=== PATIENT | female | born 1970 | race Caucasian/White ===

== ENCOUNTER 2017-06-10 16:21 | Emergency (ER) | payer BC, MEDICAID ==
[~2017-06-10] VITALS: Ht 157.5 cm; Wt 63.5 kg
[2017-06-10 16:45] VITALS: BP_SYST 111
[2017-06-10 17:30] LABS: BILIRUBIN,URINE NEGATIVE (NEGATIVE); CLARITY/URINE CLEAR (CLEAR); COLOR,URINE YELLOW (YELLOW); GLUCOSE,URINE NEGATIVE (NEGATIVE); KETONES,URINE NEGATIVE (NEGATIVE); LEUKOCYTE ESTERASE ,URINE 1+ (NEGATIVE); NITRITE, URINE NEGATIVE (NEGATIVE); PH,URINE 6.5 (5.0-8.0); PROTEIN URINE NEGATIVE (NEGATIVE); UROBILINOGEN,URINE 0.2 (0.2-1.0)
--- NOTE | 2017-06-10 17:30 | NUR ---
Pt was brought to bed 5 with complaints of body aches, swollen glands with chills and sweats. Pt states she was at a different ER on Sunday for the same thing, was given keflex, pt still has pain then bumps on the lower lip appeared and has been getting larger since. No fever at this time, denies n/v or diarrhea. No other injuries/complaints per pt or noted.
[2017-06-10 17:35] LABS: BLOOD, URINE TRACE (NEGATIVE)
[2017-06-10 17:47] LABS: BACTERIA,URINE FEW /HPF (None Seen); MUCUS,URINE 1+ /LPF (None Seen); RBC,URINE 0-3 /HPF (0-3)
--- NOTE | 2017-06-10 17:55 | NUR ---
ER JEFF MILLAN at bedside examining patient.
[2017-06-10] MEDS ORDERED: KETOROLAC TROMETHAMINE 60 MG/2 ML VIAL IM ONE (18:15)
[2017-06-10 18:40] VITALS: BP_SYST 132
--- NOTE | 2017-06-10 18:40 | NUR ---
Patient given written and verbal discharge instructions and verbalizes understanding. ER MD discussed with patient the results and treatment provided. Patient in stable condition. ID arm band removed. No prescriptions given. Patient educated on pain management and to follow up with PMD. Pain Scale 0/10 Opportunity for questions provided and answered.
--- NOTE | 2017-06-10 19:50 | NUR ---
Alexandra sykes in ED - 06/10/17 at [email or web address] Colbert at bedside examining patient
== END 2017-06-10 18:40 | disposition home or self-care (01) ==
LOC: SED 16:21
DX: N39.0 Urinary tract infection, site not specified (principal); B00.9 Herpesviral infection, unspecified
CPT/HCPCS: 36415; 81000; 81025; 86592; 87086; 87491; 87591; 96372; 99284; J1885

== ENCOUNTER 2020-11-17 15:07 | Inpatient (IN) | payer MEDICAID, SELFPAY ==
[~2020-11-17] VITALS: Ht 162.6 cm; Wt 63.5 kg
[2020-11-17 15:07] VITALS: BP_SYST 124
[2020-11-17 15:59] LABS: BASOPHILS % (AUTO) 0.3 % (0.0-2.0); EOSINOPHILS % (AUTO) 0.1 % (0.0-4.0); HEMATOCRIT 40.2 % (36-48); HEMOGLOBIN 13.9 g/dL (12.0-16.0); LYMPHOCYTES % (AUTO) 15.1 % (20.5-51.5); MEAN CORPUSCULAR HEMOGLOBIN 31 pg (27-31); MEAN CORPUSCULAR HGB CONC 35 % (32-36); MEAN CORPUSCULAR VOLUME 90 fL (79.0-98.0); MONOCYTES # (AUTO) 0.6 K/uL (0.0-1.0); NEUTROPHILS # (AUTO) 4.9 K/uL (1.8-7.7); NEUTROPHILS % (AUTO) 75.5 % (40.0-70.0); PLATELET COUNT (AUTO) 264 K/uL (130-430); RED BLOOD CELL COUNT(AUTO) 4.48 MIL/uL (4.2-6.2); RED CELL DISTRIBUTION WIDTH 13.4 % (9.0-15.0); WHITE BLOOD COUNT (AUTO) 6.5 K/uL (4.8-10.8)
[2020-11-17 16:33] LABS: CALCIUM 7.9 mg/dL (8.4-11.0); CREATININE 0.72 mg/dL (0.55-1.30)
[2020-11-17 16:40] LABS: ALBUMIN 2.8 g/dL (3.4-4.8); TOTAL BILIRUBIN 0.2 mg/dL (0.0-1.0)
[2020-11-17] MEDS ORDERED: PIPERACILLIN/TAZO 3.375 GM in NS 50 ML IV ONE (17:15)
[2020-11-17] MEDS ORDERED: DEXAMETHASONE SOD PHOSPHATE 10 MG/ML VIAL IVP ONE (17:15)
[2020-11-17 17:37] LABS: INR 0.9 (0.8-1.2); PROTHROMBIN TIME 9.5 SECS (9.5-12.5)
[2020-11-17 17:54] VITALS: BP_SYST 120
[2020-11-17 18:07] LABS: C-REACTIVE PROTEIN QUANT 5.4 mg/dL (0-0.5)
[2020-11-17] MEDS ORDERED: ALBUTEROL MDI INHALATION 8 GM INH INH PRN (19:15)
[2020-11-17] MEDS ORDERED: HYDROcodone/ACETAMIN 5-325 MG TAB (NORCO/ VICODIN) PO PRN (19:15)
[2020-11-17] MEDS ORDERED: ACETAMINOPHEN 325 MG TABLET PO PRN (19:15)
[2020-11-17] MEDS ORDERED: CHOLECALCIFEROL (VITAMIN D3) 5,000 UNIT TABLET PO ONE (19:15)
[2020-11-17 20:00] VITALS: BP_SYST 107
[2020-11-17] MEDS ORDERED: ENOXAPARIN SODIUM 40 MG/0.4 ML SYRINGE SUBCUT ONE (20:00)
[2020-11-17] MEDS: ASCORBIC ACID 500 MG TABLET PO SCH (21:00)
[2020-11-17] MEDS: BENZONATATE 100 MG CAPSULE (TESSALON) PO SCH (21:24)
[2020-11-17] MEDS: DEXAMETHASONE SOD PHOSPHATE 10 MG/ML VIAL IVP SCH (21:25)
[2020-11-18] VITALS: BP_SYST 116
[2020-11-18 06:48] LABS: BASOPHILS % (AUTO) 0.2 % (0.0-2.0); HEMATOCRIT 41.8 % (36-48); HEMOGLOBIN 14.5 g/dL (12.0-16.0); LYMPHOCYTES # (AUTO) 0.6 K/uL (1.0-5.5); LYMPHOCYTES % (AUTO) 9.2 % (20.5-51.5); MEAN CORPUSCULAR HEMOGLOBIN 31 pg (27-31); MEAN CORPUSCULAR HGB CONC 35 % (32-36); MEAN CORPUSCULAR VOLUME 90 fL (79.0-98.0); MONOCYTES # (AUTO) 0.3 K/uL (0.0-1.0); NEUTROPHILS # (AUTO) 5.9 K/uL (1.8-7.7); NEUTROPHILS % (AUTO) 86.6 % (40.0-70.0); PLATELET COUNT (AUTO) 279 K/uL (130-430); RED BLOOD CELL COUNT(AUTO) 4.63 MIL/uL (4.2-6.2); RED CELL DISTRIBUTION WIDTH 13.4 % (9.0-15.0); WHITE BLOOD COUNT (AUTO) 6.8 K/uL (4.8-10.8)
[2020-11-18 07:10] LABS: ALBUMIN 2.7 g/dL (3.4-4.8); CALCIUM 8.5 mg/dL (8.4-11.0); CREATININE 0.78 mg/dL (0.55-1.30); POTASSIUM 3.7 mmol/L (3.5-5.1); THYROID STIMULATING HORMONE 0.31 uIu/mL (0.36-3.74); TOTAL BILIRUBIN 0.4 mg/dL (0.0-1.0)
[2020-11-18] MEDS ORDERED: INSULIN LISPRO SLIDING SCALE 100 UNITS/ML VIAL (humaLOG) SUBCUT PRN (08:00)
[2020-11-18 08:06] VITALS: BP_SYST 125
[2020-11-18] MEDS ORDERED: DEXTROSE 50%-WATER 50 ML DISP.SYRIN IVP PRN (09:00)
[2020-11-18] MEDS ORDERED: GLUCOSE (DEXTROSE) ORAL GEL -Adults PO PRN (09:00)
[2020-11-18] MEDS ORDERED: D5W 1,000 ML IV PRN (09:00)
[2020-11-18] MEDS: guaiFENesin/DEXTROMETHORPHAN 10 ML UDC PO PRN (09:58)
[2020-11-18] MEDS: BENZONATATE 100 MG CAPSULE (TESSALON) PO SCH ×3 (10:02→21:10)
[2020-11-18] MEDS: CHOLECALCIFEROL (VITAMIN D3) 5,000 UNIT TABLET PO SCH (10:02)
[2020-11-18] MEDS: FAMOTIDINE 20 MG TABLET PO SCH (10:02)
[2020-11-18] MEDS: LEVOFLOXACIN 500 MG/D5W 100 ML IV SCH (10:03)
[2020-11-18] MEDS: ENOXAPARIN SODIUM 40 MG/0.4 ML SYRINGE SUBCUT SCH (10:04)
[2020-11-18 12:30] VITALS: BP_SYST 126
[2020-11-18] MEDS: ASCORBIC ACID 500 MG TABLET PO SCH ×2 (12:32→21:11)
[2020-11-18 16:00] VITALS: BP_SYST 127
[2020-11-18 20:00] VITALS: BP_SYST 116
[2020-11-18] MEDS: DEXAMETHASONE SOD PHOSPHATE 10 MG/ML VIAL IVP SCH (21:10)
[2020-11-18] MEDS: DOCUSATE SODIUM 250 MG CAPSULE PO SCH (21:10)
[2020-11-18] MEDS: FLUCONAZOLE 100 mg/ NS 50 ML IV SCH (21:11)
[2020-11-18 23:49] VITALS: BP_SYST 133
[2020-11-19] MEDS: guaiFENesin/DEXTROMETHORPHAN 10 ML UDC PO PRN ×2 (05:11→11:16)
[2020-11-19 06:58] LABS: ALBUMIN 2.7 g/dL (3.4-4.8); CALCIUM 8.3 mg/dL (8.4-11.0); CREATININE 0.66 mg/dL (0.55-1.30); POTASSIUM 4.2 mmol/L (3.5-5.1); TOTAL BILIRUBIN 0.5 mg/dL (0.0-1.0)
[2020-11-19 08:10] VITALS: BP_SYST 98
[2020-11-19] MEDS: LEVOFLOXACIN 500 MG/D5W 100 ML IV SCH (08:10)
[2020-11-19] MEDS: BENZONATATE 100 MG CAPSULE (TESSALON) PO SCH ×3 (08:10→22:16)
[2020-11-19] MEDS: FAMOTIDINE 20 MG TABLET PO SCH (08:10)
[2020-11-19] MEDS: CHOLECALCIFEROL (VITAMIN D3) 5,000 UNIT TABLET PO SCH (08:10)
[2020-11-19] MEDS: DOCUSATE SODIUM 250 MG CAPSULE PO SCH ×2 (08:10→21:00)
[2020-11-19] MEDS: ENOXAPARIN SODIUM 40 MG/0.4 ML SYRINGE SUBCUT SCH (08:11)
[2020-11-19] MEDS: ASCORBIC ACID 500 MG TABLET PO SCH ×2 (09:29→22:16)
[2020-11-19 12:00] VITALS: BP_SYST 151
[2020-11-19 16:20] VITALS: BP_SYST 121
[2020-11-19] MEDS ORDERED: IVERMECTIN 3 MG TABLET PO ONE (17:00)
[2020-11-19 20:00] VITALS: BP_SYST 126
[2020-11-19] MEDS: DEXAMETHASONE SOD PHOSPHATE 10 MG/ML VIAL IVP SCH (20:00)
[2020-11-19] MEDS: FLUCONAZOLE 100 mg/ NS 50 ML IV SCH (21:00)
[2020-11-20] VITALS: BP_SYST 120
[2020-11-20 07:14] LABS: BASOPHILS % (AUTO) 0.1 % (0.0-2.0); HEMATOCRIT 41.5 % (36-48); HEMOGLOBIN 13.5 g/dL (12.0-16.0); LYMPHOCYTES # (AUTO) 0.7 K/uL (1.0-5.5); MEAN CORPUSCULAR HEMOGLOBIN 30 pg (27-31); MEAN CORPUSCULAR HGB CONC 33 % (32-36); MEAN CORPUSCULAR VOLUME 92 fL (79.0-98.0); MONOCYTES # (AUTO) 0.6 K/uL (0.0-1.0); MONOCYTES % (AUTO) 3.5 % (1.7-9.3); NEUTROPHILS # (AUTO) 16.4 K/uL (1.8-7.7); NEUTROPHILS % (AUTO) 92.4 % (40.0-70.0); PLATELET COUNT (AUTO) 342 K/uL (130-430); RED BLOOD CELL COUNT(AUTO) 4.53 MIL/uL (4.2-6.2); RED CELL DISTRIBUTION WIDTH 13.4 % (9.0-15.0); WHITE BLOOD COUNT (AUTO) 17.8 K/uL (4.8-10.8)
[2020-11-20 07:30] LABS: ALBUMIN 2.7 g/dL (3.4-4.8); CALCIUM 8.2 mg/dL (8.4-11.0); CREATININE 0.59 mg/dL (0.55-1.30); POTASSIUM 4.3 mmol/L (3.5-5.1); TOTAL BILIRUBIN 0.5 mg/dL (0.0-1.0)
[2020-11-20 08:00] VITALS: BP_SYST 111
[2020-11-20 08:00] LABS: C-REACTIVE PROTEIN QUANT 2.2 mg/dL (0-0.5)
[2020-11-20] MEDS: CHOLECALCIFEROL (VITAMIN D3) 5,000 UNIT TABLET PO SCH (09:31)
[2020-11-20] MEDS: FAMOTIDINE 20 MG TABLET PO SCH (09:31)
[2020-11-20] MEDS: BENZONATATE 100 MG CAPSULE (TESSALON) PO SCH ×3 (09:31→22:04)
[2020-11-20] MEDS: LEVOFLOXACIN 500 MG/D5W 100 ML IV SCH (09:31)
[2020-11-20] MEDS: DOCUSATE SODIUM 250 MG CAPSULE PO SCH ×2 (09:31→21:00)
[2020-11-20] MEDS: ENOXAPARIN SODIUM 40 MG/0.4 ML SYRINGE SUBCUT SCH (09:38)
[2020-11-20] MEDS: ASCORBIC ACID 500 MG TABLET PO SCH ×2 (11:16→21:00)
[2020-11-20 12:00] VITALS: BP_SYST 120
[2020-11-20] MEDS: IVERMECTIN 3 MG TABLET PO SCH (15:53)
[2020-11-20 16:00] VITALS: BP_SYST 125
[2020-11-20 20:00] VITALS: BP_SYST 118
[2020-11-20] MEDS: DEXAMETHASONE SOD PHOSPHATE 10 MG/ML VIAL IVP SCH (22:03)
[2020-11-20] MEDS: FLUCONAZOLE 100 mg/ NS 50 ML IV SCH (22:04)
[2020-11-21] VITALS: BP_SYST 120
[2020-11-21 06:44] LABS: BASOPHILS % (AUTO) 0.3 % (0.0-2.0); HEMATOCRIT 42.1 % (36-48); HEMOGLOBIN 13.8 g/dL (12.0-16.0); LYMPHOCYTES # (AUTO) 0.9 K/uL (1.0-5.5); LYMPHOCYTES % (AUTO) 7.5 % (20.5-51.5); MEAN CORPUSCULAR HEMOGLOBIN 30 pg (27-31); MEAN CORPUSCULAR HGB CONC 33 % (32-36); MEAN CORPUSCULAR VOLUME 92 fL (79.0-98.0); MONOCYTES # (AUTO) 0.4 K/uL (0.0-1.0); MONOCYTES % (AUTO) 3.7 % (1.7-9.3); NEUTROPHILS # (AUTO) 10.3 K/uL (1.8-7.7); NEUTROPHILS % (AUTO) 88.5 % (40.0-70.0); PLATELET COUNT (AUTO) 359 K/uL (130-430); RED BLOOD CELL COUNT(AUTO) 4.59 MIL/uL (4.2-6.2); RED CELL DISTRIBUTION WIDTH 13.2 % (9.0-15.0); WHITE BLOOD COUNT (AUTO) 11.6 K/uL (4.8-10.8)
[2020-11-21 07:29] LABS: ALBUMIN 2.6 g/dL (3.4-4.8); CALCIUM 8.4 mg/dL (8.4-11.0); CREATININE 0.63 mg/dL (0.55-1.30); POTASSIUM 4.6 mmol/L (3.5-5.1); TOTAL BILIRUBIN 0.5 mg/dL (0.0-1.0)
[2020-11-21 09:00] VITALS: BP_SYST 107
[2020-11-21] MEDS: LEVOFLOXACIN 500 MG/D5W 100 ML IV SCH (09:04)
[2020-11-21] MEDS: ENOXAPARIN SODIUM 40 MG/0.4 ML SYRINGE SUBCUT SCH (09:07)
[2020-11-21] MEDS: DOCUSATE SODIUM 250 MG CAPSULE PO SCH ×2 (09:07→20:46)
[2020-11-21] MEDS: CHOLECALCIFEROL (VITAMIN D3) 5,000 UNIT TABLET PO SCH (09:07)
[2020-11-21] MEDS: FAMOTIDINE 20 MG TABLET PO SCH (09:14)
[2020-11-21] MEDS: guaiFENesin/DEXTROMETHORPHAN 10 ML UDC PO PRN (09:14)
[2020-11-21] MEDS: BENZONATATE 100 MG CAPSULE (TESSALON) PO SCH ×3 (09:15→20:46)
[2020-11-21 12:00] VITALS: BP_SYST 115
[2020-11-21 16:00] VITALS: BP_SYST 127
[2020-11-21] MEDS: IVERMECTIN 3 MG TABLET PO SCH (16:41)
[2020-11-21] MEDS: ASCORBIC ACID 500 MG TABLET PO SCH ×2 (16:58→20:46)
[2020-11-21 17:36] LABS: BILIRUBIN,URINE NEGATIVE (NEGATIVE); BLOOD, URINE NEGATIVE (NEGATIVE); CLARITY/URINE CLEAR (CLEAR); COLOR,URINE YELLOW (YELLOW); GLUCOSE,URINE NEGATIVE (NEGATIVE); KETONES,URINE NEGATIVE (NEGATIVE); LEUKOCYTE ESTERASE ,URINE NEGATIVE (NEGATIVE); NITRITE, URINE NEGATIVE (NEGATIVE); PROTEIN URINE NEGATIVE (NEGATIVE); UROBILINOGEN,URINE 0.2 (0.2-1.0)
[2020-11-21 20:45] VITALS: BP_SYST 99
[2020-11-21] MEDS: DEXAMETHASONE SOD PHOSPHATE 10 MG/ML VIAL IVP SCH (20:46)
[2020-11-21] MEDS: FLUCONAZOLE 100 mg/ NS 50 ML IV SCH (20:46)
[2020-11-22] VITALS: BP_SYST 102
[2020-11-22] MEDS: guaiFENesin/DEXTROMETHORPHAN 10 ML UDC PO PRN (06:49)
[2020-11-22 08:00] VITALS: BP_SYST 103
[2020-11-22] MEDS: DOCUSATE SODIUM 250 MG CAPSULE PO SCH ×2 (09:11→20:35)
[2020-11-22] MEDS: BENZONATATE 100 MG CAPSULE (TESSALON) PO SCH ×3 (09:11→20:36)
[2020-11-22] MEDS: FAMOTIDINE 20 MG TABLET PO SCH (09:11)
[2020-11-22] MEDS: CHOLECALCIFEROL (VITAMIN D3) 5,000 UNIT TABLET PO SCH (09:11)
[2020-11-22] MEDS: LEVOFLOXACIN 500 MG/D5W 100 ML IV SCH (09:11)
[2020-11-22] MEDS: ENOXAPARIN SODIUM 40 MG/0.4 ML SYRINGE SUBCUT SCH (09:12)
[2020-11-22 12:00] VITALS: BP_SYST 124
[2020-11-22] MEDS: ASCORBIC ACID 500 MG TABLET PO SCH ×2 (12:11→20:36)
[2020-11-22 16:00] VITALS: BP_SYST 135
[2020-11-22] MEDS: IVERMECTIN 3 MG TABLET PO SCH (17:56)
[2020-11-22] MEDS: FLUCONAZOLE 100 mg/ NS 50 ML IV SCH (20:35)
[2020-11-22] MEDS: DEXAMETHASONE SOD PHOSPHATE 10 MG/ML VIAL IVP SCH (20:35)
[2020-11-22 21:04] VITALS: BP_SYST 115
[2020-11-23 00:18] VITALS: BP_SYST 98
[2020-11-23 07:52] VITALS: BP_SYST 125
[2020-11-23] MEDS: LEVOFLOXACIN 500 MG/D5W 100 ML IV SCH (08:35)
[2020-11-23] MEDS: BENZONATATE 100 MG CAPSULE (TESSALON) PO SCH ×3 (08:35→20:09)
[2020-11-23] MEDS: FAMOTIDINE 20 MG TABLET PO SCH (08:35)
[2020-11-23] MEDS: CHOLECALCIFEROL (VITAMIN D3) 5,000 UNIT TABLET PO SCH (08:35)
[2020-11-23] MEDS: DOCUSATE SODIUM 250 MG CAPSULE PO SCH ×2 (08:35→20:09)
[2020-11-23] MEDS: ENOXAPARIN SODIUM 40 MG/0.4 ML SYRINGE SUBCUT SCH (08:36)
[2020-11-23] MEDS: ASCORBIC ACID 500 MG TABLET PO SCH ×2 (09:43→20:09)
[2020-11-23 11:49] VITALS: BP_SYST 112
[2020-11-23 16:00] VITALS: BP_SYST 105
[2020-11-23 16:53] VITALS: BP_SYST 105
[2020-11-23] MEDS: FLUCONAZOLE 100 mg/ NS 50 ML IV SCH (19:02)
[2020-11-23 20:00] VITALS: BP_SYST 117
[2020-11-23] MEDS ORDERED: DEXAMETHASONE SOD PHOSPHATE 10 MG/ML VIAL ONE (20:04)
[2020-11-23] MEDS ORDERED: DEXAMETHASONE SOD PHOSPHATE 10 MG/ML VIAL IVP SCH (21:00)
[2020-11-24] VITALS: BP_SYST 106
[2020-11-24 08:00] VITALS: BP_SYST 106
[2020-11-24] MEDS: LEVOFLOXACIN 500 MG/D5W 100 ML IV SCH (08:15)
[2020-11-24] MEDS: BENZONATATE 100 MG CAPSULE (TESSALON) PO SCH (08:15)
[2020-11-24] MEDS: FAMOTIDINE 20 MG TABLET PO SCH (08:15)
[2020-11-24] MEDS: ASCORBIC ACID 500 MG TABLET PO SCH (08:15)
[2020-11-24] MEDS: CHOLECALCIFEROL (VITAMIN D3) 5,000 UNIT TABLET PO SCH (08:15)
[2020-11-24] MEDS: DOCUSATE SODIUM 250 MG CAPSULE PO SCH (08:15)
[2020-11-24] MEDS: ENOXAPARIN SODIUM 40 MG/0.4 ML SYRINGE SUBCUT SCH (08:20)
[2020-11-24 10:15] VITALS: BP_SYST 106
[2020-11-24 11:45] VITALS: BP_SYST 98
[2020-11-24] MEDS ORDERED: LEVO750T45 PO (11:51)
[2020-11-24] MEDS ORDERED: DEC4 PO (11:52)
[2020-11-24] MEDS ORDERED: FAMO20TA8 PO (11:52)
[2020-11-24] MEDS ORDERED: ALBMDI INH (11:54)
[2020-11-24] MEDS ORDERED: APIX2.5T PO (11:54)
== END 2020-11-24 13:50 | disposition home or self-care (01) | DRG 137 ==
LOC: SED 15:07 → STU 17:19 → SMU 11-21 14:39
PROVIDERS: ADMIT Internal Medicine; ATTEND Internal Medicine
DX: U07.1 COVID-19 (principal); J12.82 Pneumonia due to coronavirus disease 2019; D72.810 Lymphocytopenia; J90 Pleural effusion, not elsewhere classified; R73.9 Hyperglycemia, unspecified; T38.0X5A Adverse effect of glucocorticoids and synthetic analogues, initial encounter; J96.91 Respiratory failure, unspecified with hypoxia; J15.6 Pneumonia due to other Gram-negative bacteria; Y92.89 Other specified places as the place of occurrence of the external cause; E44.0 Moderate protein-calorie malnutrition; E87.1 Hypo-osmolality and hyponatremia
CPT/HCPCS: 36415; 36600; 71045; 80053; 81003; 82728; 82803-TC; 82962; 83605; 83615-TC; 83880; 84439; 84443-TC; 84484; 85025; 85379; 85610-TC; 85730-TC; 86140; 86886; 86900; 86901; 87040-TC; 93005; 93970; 96374; G0378; J1100; J1450; J1650; J1956; U0003

== ENCOUNTER 2020-12-03 17:35 | Emergency (ER) | payer MEDICAID, SELFPAY ==
[~2020-12-03] VITALS: Ht 154.9 cm; Wt 63.5 kg
[~2020-12-03 17:35] MED LIST: ALBMDI INH; APIX2.5T PO; DEC4 PO; FAMO20TA8 PO; LEVO750T45 PO
[2020-12-03 17:40] VITALS: BP_SYST 125
--- NOTE | 2020-12-03 17:40 | NUR ---
PT TO BED 8, GOWNED AND ATTACHED TO MONITOR. REPORT TO NICOLAS MARTINEZ.
--- NOTE | 2020-12-03 17:48 | NUR ---
Pt came to ER for SOB and shakiness, presents with tachycardia, O2 WNL, no distress noted. Pt lungs clear no complaints of SOB currently. Resting in [facility] at this time, VSS, awaiting .
--- NOTE | 2020-12-03 17:55 | NUR ---
ER at bedside examining patient.
[2020-12-03 18:56] LABS: BASOPHILS % (AUTO) 0.3 % (0.0-2.0); EOSINOPHILS # (AUTO) 0.1 K/uL (0.0-0.4); EOSINOPHILS % (AUTO) 1.1 % (0.0-4.0); HEMATOCRIT 38.9 % (36-48); HEMOGLOBIN 13.1 g/dL (12.0-16.0); LYMPHOCYTES # (AUTO) 1.1 K/uL (1.0-5.5); MEAN CORPUSCULAR HEMOGLOBIN 31 pg (27-31); MEAN CORPUSCULAR HGB CONC 34 % (32-36); MEAN CORPUSCULAR VOLUME 90 fL (79.0-98.0); MONOCYTES # (AUTO) 0.9 K/uL (0.0-1.0); MONOCYTES % (AUTO) 9.3 % (1.7-9.3); NEUTROPHILS # (AUTO) 7.4 K/uL (1.8-7.7); NEUTROPHILS % (AUTO) 77.3 % (40.0-70.0); PLATELET COUNT (AUTO) 305 K/uL (130-430); RED CELL DISTRIBUTION WIDTH 13.6 % (9.0-15.0); WHITE BLOOD COUNT (AUTO) 9.5 K/uL (4.8-10.8)
--- NOTE | 2020-12-03 19:00 | NUR ---
REPORT RECEIVED AND ASSUMED CARE OF PATIENT.
[2020-12-03 19:03] LABS: PROTHROMBIN TIME 9.8 SECS (9.5-12.5)
[2020-12-03 19:14] LABS: CALCIUM 8.5 mg/dL (8.4-11.0); CREATININE 0.69 mg/dL (0.55-1.30); POTASSIUM 3.7 mmol/L (3.5-5.1)
[2020-12-03 19:19] LABS: TOTAL BILIRUBIN 0.7 mg/dL (0.0-1.0)
[2020-12-03] MEDS ORDERED: IOHEXOL 350 mgI/mL, 150 ML INFUS..BTL IV ONE (19:56)
--- NOTE | 2020-12-03 20:00 | NUR ---
IV ESTABLISHED 20G IV HL INTO RIGHT ARM. CT CONTRAST CONSENT SIGNED AND WITNESSED.
--- NOTE | 2020-12-03 20:07 | NUR ---
PATIENT TAKEN TO CTA WITH CONTRAST VIA WHEELCHAIR.
[2020-12-03] MEDS ORDERED: PHEDM120 PO (20:40)
[2020-12-03] MEDS ORDERED: ALBMDI INH (20:40)
[2020-12-03 20:50] VITALS: BP_SYST 125
--- NOTE | 2020-12-03 20:50 | NUR ---
Patient given written and verbal discharge instructions and verbalizes understanding. Dr.Lee MISHA PATEL discussed with patient the results and treatment provided. Patient in stable condition. ID arm band removed. IV catheter removed intact and dressing applied, no active bleeding. Rx of albuterol, promethazine sent by md and given. Patient educated on pain management and to follow up with PMD. Pain Scale 0/10. Opportunity for questions provided and answered. Medication side effect fact sheet provided.
== END 2020-12-03 20:50 | disposition home or self-care (01) ==
LOC: SED 17:35
DX: J98.01 Acute bronchospasm (principal); R06.02 Shortness of breath; Z79.899 Other long term (current) drug therapy
CPT/HCPCS: 36415; 71045; 71275; 76376; 80053; 81025; 83880; 84145; 84484; 84703; 85025; 85379; 85610; 85730; 93005; 99285; Q9967

== ENCOUNTER 2021-01-04 16:00 | Emergency (ER) | payer MEDICAID ==
[~2021-01-04] VITALS: Ht 154.9 cm; Wt 62.6 kg
[~2021-01-04 16:00] MED LIST changes: +PHEDM120 PO
[2021-01-04 16:05] VITALS: BP_SYST 145
[2021-01-04] MEDS ORDERED: KETOROLAC TROMETHAMINE 60 MG/2 ML VIAL IM ONE (18:15)
[2021-01-04] MEDS ORDERED: IBUP-1969 PO (18:16)
[2021-01-04 18:26] VITALS: BP_SYST 145
== END 2021-01-04 18:26 | disposition home or self-care (01) ==
LOC: SED 16:00
DX: M79.662 Pain in left lower leg (principal); Z79.899 Other long term (current) drug therapy
CPT/HCPCS: 93971; 96372; 99285; J1885

== ENCOUNTER 2021-08-24 14:07 | Emergency (ER) | payer MEDICAID, SELFPAY ==
[~2021-08-24] VITALS: Ht 154.9 cm; Wt 63.5 kg
[2021-08-24 14:07] VITALS: BP_SYST 152
[~2021-08-24 14:07] MED LIST changes: +IBUP-1969 PO; +METH-634 PO
--- NOTE | 2021-08-24 14:07 | NUR ---
PT TO OUTSIDE TRIAGE TENT, PLACED IN TENT AND WILL ASSUME CARE.
--- NOTE | 2021-08-24 14:45 | NUR ---
SIN OUT TO TENT FOR EVALUATION
--- NOTE | 2021-08-24 15:56 | NUR ---
COVID SPECIMEN OBTAINED AND SENT TO LAB, PT TOLERATED IT WELL.
[2021-08-24] MEDS ORDERED: BENZ-16 PO (16:40)
[2021-08-24] MEDS ORDERED: PRED20TA PO (16:40)
[2021-08-24] MEDS ORDERED: GUAI-723 PO (16:41)
[2021-08-24] MEDS ORDERED: ALBMDI INH (16:41)
--- NOTE | 2021-08-24 16:49 | NUR ---
Patient given written and verbal discharge instructions and verbalizes understanding. ER MD discussed with patient the results and treatment provided. Patient in stable condition. ID arm band removed. Rx of ALBUTEROL, TESSALON PERLE, MUCINEX, PREDNISONE given. Patient educated on pain management and to follow up with PMD. Pain Scale 0/10. Opportunity for questions provided and answered. Medication side effect fact sheet provided.
[2021-08-24 16:50] VITALS: BP_SYST 127
== END 2021-08-24 16:49 | disposition home or self-care (01) ==
LOC: MERGE 14:07 → SED 14:07
DX: J06.9 Acute upper respiratory infection, unspecified (principal); Z79.899 Other long term (current) drug therapy; Z20.822 Contact with and (suspected) exposure to COVID-19
CPT/HCPCS: 36415; 71045; 86710; 99284

== ENCOUNTER 2023-05-07 17:05 | Emergency (ER) | payer OTHER, MEDICAID ==
[~2023-05-07] VITALS: Ht 154.9 cm; Wt 62.6 kg
[~2023-05-07 17:05] MED LIST changes: +BENZ-16 PO; +GUAI-723 PO; -LEVO750T45 PO; +LEVO750T64 PO; +PRED20TA PO
[2023-05-07 17:15] VITALS: BP_SYST 139; PULSE 68; RESP 16; TEMP 97.7; O2SAT 99
[2023-05-07] MEDS ORDERED: KETOROLAC TROMETHAMINE 60 MG/2 ML VIAL IM ONE (18:00)
[2023-05-07] MEDS ORDERED: CYCL10TA24 PO (18:27)
[2023-05-07] MEDS ORDERED: IBUP-1969 PO (18:27)
[2023-05-07 18:53] VITALS: BP_SYST 139; PULSE 68; RESP 16; TEMP 97.7; O2SAT 99
== END 2023-05-07 18:53 | disposition home or self-care (01) ==
LOC: SED 17:05
DX: S16.1XXA Strain of muscle, fascia and tendon at neck level, initial encounter (principal); S29.012A Strain of muscle and tendon of back wall of thorax, initial encounter; Z79.899 Other long term (current) drug therapy; V89.2XXA Person injured in unspecified motor-vehicle accident, traffic, initial encounter; Y93.89 Activity, other specified; Y92.89 Other specified places as the place of occurrence of the external cause; Y99.8 Other external cause status
CPT/HCPCS: 99284; 71046; 72040; 72080; 96372; J1885